=== PATIENT | female | born 1940 | race Caucasian/White ===

== ENCOUNTER 2016-07-14 07:50 | Outpatient (CLI) ==
[2016-03-24 04:10] VITALS: BMI 26.9
== END 2016-07-14 07:51 | disposition home or self-care (01) ==
LOC: AMBL 07:50
PROVIDERS: ATTEND Emergency Medicine
DX: M79.606 Pain in leg, unspecified (principal); M25.559 Pain in unspecified hip; W19.XXXA Unspecified fall, initial encounter; Y92.009 Unspecified place in unspecified non-institutional (private) residence as the place of occurrence of the external cause

== ENCOUNTER 2016-07-17 14:18 | Emergency (ER) ==
[2016-07-17 14:23] VITALS: BP 123/68; TEMP 99.5; BMI 26.2
--- NOTE | 2016-07-17 14:25 | ED.PDOC ---
General ED Provider: Dr. GEREMIAS MAGANA JR Chief Complaint: Fall Stated Complaint: fell 1 week ago-lost balance and fell back and landed onto floor onto buttock then fell back and hit back of head--has pain to buttocks area--difficult to walk-point to anterior pelvic area-able to move legs--is alert[End]99.5 82 20 93% 123/68 710 Time Seen by Physician: 14:27 Mode of Arrival: Walk-In Information Source: Patient Exam Limitations: No limitations Primary Care Provider: PRESTON FITZGERALD Nursing and Triage Documentation Reviewed and Agree: Yes Review of Systems - Review Of Systems Constitutional: Reports: Malaise, Weakness Respiratory: Reports: Cough Musculoskeletal: Reports: Back pain, Neck pain Skin: Reports: Bruising Neurological: Reports: Cognitive dysfunction, Weakness Endocrine: Reports: No symptoms Hematologic/Lymphatic: Reports: No symptoms All Other Systems: Other Past Medical History - Past Medical History Previously Healthy: No Endocrine: Reports: Dyslipidemia Cardiovascular: Reports: CAD, HI, Hypertension, CHF Respiratory: Reports: None Hematological: Reports: None Gastrointestinal: Reports: GERD Genitourinary: Reports: Other Neuro/Psych: Reports: None Musculoskeletal: Reports: Arthritis Cancer: Reports: None Other Pertinent Past Medical History: BLADDER, chronic back pain - Surgical History General Surgical History: Reports: Hysterectomy (PARTIAL HYSTERECTOMY,), CABG, Orthopedic ( RIGHT KNEE REPLACEMENT ) - Family History Family History: Reports: Unknown - Social History Smoking Status: Former smoker Hx Substance Use: No Alcohol Screening: None Physical Exam - Physical Exam Appearance: Ill-appearing Ill-appearing: Mild Pain Distress: Moderate Eyes: RE, EOMI, Conjunctiva clear ENT: Ears normal, Nose normal, Oropharynx normal Neck: Supple Respiratory: Airway patent, Breath sounds clear, Breath sounds equal, Respirations nonlabored Cardiovascular: RRR, Pulses normal, No rub, No murmur GI/: Soft, Nontender, No masses, Bowel sounds normal, No Organomegaly Musculoskeletal: Normal strength, ROM intact, No edema, No calf tenderness ( TENDER CSPINE MID HEIGHT RIGHT LUMBAR SPINE PELVIC PAIN WITHOUT TENDERNESS) Skin: Warm, Dry, Normal color Neurological: Sensation intact, Motor intact, Reflexes intact, Cranial nerves intact, Alert, Oriented Physician Notification - Case Discussed Physician Notified: DR ALEXANDER Time of Notification: 16:38 (INFORMED OF DISCHARGE HOME) Critical Care Note - Critical Care Note Total Time (mins): 5 Course - Course Hematology/Chemistry: 07/17/16 15:06 07/17/16 15:06 Orders, Labs, Meds: Lab Review 07/17/16 15:06 WBC 12.06 H RBC 3.27 L Hgb 9.8 L Hct 29.0 L MCV 88.7 MCH 30.0 MCHC 33.8 RDW Coeff of Rylan 13.3 Plt Count 230 Immature Gran % (Auto) 0.3 Neut % (Auto) 80.0 Lymph % (Auto) 9.7 L [place] % (Auto) 9.5 Eos % (Auto) 0.2 Baso % (Auto) 0.3 Immature Gran # (Auto) 0.0 Neut # 9.6 H Lymph # 1.2 [place] # 1.2 Eos # 0.0 Baso # 0.0 Sodium 135 L Potassium 3.7 Chloride 107 Carbon Dioxide 21 L Anion Gap 10.7 BUN 13 Creatinine 1.20 Estimated GFR (MDRD) 44.00 BUN/Creatinine Ratio 10.83 Glucose 115 Calcium 8.7 Total Bilirubin 0.69 AST 13 L ALT 9 L Alkaline Phosphatase 66 Total Protein 6.4 Albumin 3.0 L Globulin 3.4 Albumin/Globulin Ratio 0.88 Orders Category Date Time Status CBC W/ AUTO DIFF Stat LAB 07/17/16 15:06 Completed CMP [COMPREHENSIVE METABOLIC PANEL] Stat LAB 07/17/16 15:[address] CERVICAL SPINE W/O CONTRAST Stat RADS 07/17/16 15:[address] HEAD W/O CONTRAST Stat RADS 07/17/16 15:[address] LUMBAR SPINE W/O CONTRAST Stat RADS 07/17/16 15:12 Completed PELVIS & BRUNILDA HIPS Stat RADS 07/17/16 14:26 Completed Vital Signs: Temp Pulse Resp BP Pulse Ox 07/17/16 14:18 99.5 F 82 20 123/68 93 L Departure - Departure Time of Disposition: 16:38 Disposition: HOME SELF-CARE Discharge Problem: Falls Back pain Qualifiers: Back pain location: low back pain Chronicity: acute Back pain laterality: right Sciatica presence: without sciatica Qualifier Code: (M54.5) Low back pain Instructions: Fall Prevention for Older Adults (ED), Acute Low Back Pain (ED), Lower Back Exercises (ED) Condition: Good Pt referred to PMD for follow-up: Yes Additional Instructions: RECHECK PMD NEXT WEEK RETURN IF WORSENING HOME MEDICATION FOR PAIN DAILY EXERCISE NO NEW INJURIES ON XRAY- OLD RIGHT BACK FRACTURE SEEN ON XRAY Allergies/Adverse Reactions: Allergies Penicillins Adverse Reaction (Verified 07/17/16 14:25) Home Medications: Ambulatory Orders Furosemide [Lasix Tab] 40 mg PO QDAC 02/17/15 Hydrocodone Bit/Acetaminophen [[place] 7.5-325] 7.5 - 325 each PO TID 02/17/15 Lisinopril [Zestril] 10 mg PO DAILY 02/17/15 Oxybutynin Chloride [Ditropan Xl] 10 mg PO DAILY 02/17/15 Simvastatin 40 mg PO BEDTIME 02/17/15 Meclizine HCl 25 mg PO TID #100 11/08/15 Diazepam [Valium] 2 mg PO Q12HR PRN #20 tablet 03/27/16 Diltiazem HCl [Cardizem Cd] 240 mg PO DAILY 07/17/16 Potassium Chloride [Klor-Con 10] 10 meq PO DAILY 07/17/16
--- NOTE | 2016-07-17 15:05 | DI ---
EXAM: Radiographs, pelvis and bilateral hip HISTORY: Initial presentation for pelvic pain following a fall. COMPARISON: CT 03/06/2016. TECHNIQUE: Four views. FINDINGS: Bilateral hip arthroplasty hardware noted. Components appear well seated. No fracture o r dislocation identified. The bones are demineralized. Degenerative changes of the lumbar spine ar e incompletely imaged. No localized soft tissue abnormality. IMPRESSION: No fracture or dislocation.
[2016-07-17 15:11] LABS: BASOPHILS % (AUTO) 0.3 % (0.0-3.0); EOSINOPHILS % (AUTO) 0.2 % (0.0-7.0); HEMOGLOBIN 9.8 g/dl (12.0-16.0); IMMATURE GRANULOCYTE % (AUTO) 0.3 % (0.0-5.0); LYMPHOCYTES # (AUTO) 1.2 K/uL (0.60-3.4); LYMPHOCYTES % (AUTO) 9.7 (10.0-50.0); MEAN CORPUSCULAR HGB CONC 33.8 (31.8-35.4); MEAN CORPUSCULAR VOLUME 88.7 fl (81.0-99.0); MONOCYTES # (AUTO) 1.2 K/uL (0.4-2.0); MONOCYTES % (AUTO) 9.5 (0-10); NEUTROPHILS # (AUTO) 9.6 K/ul (2.0-6.9); PLATELET COUNT 230 10^3/uL (140-440); RED BLOOD COUNT 3.27 10^6/ul (4.20-5.40); WHITE BLOOD COUNT 12.06 K/ul (4.6-10.2)
[2016-07-17 15:31] LABS: ALBUMIN/GLOBULIN RATIO 0.88; ANION GAP 10.7; BILIRUBIN,TOTAL 0.69 mg/dL (0.00-1.20); BUN/CREATININE RATIO 10.83; CALCIUM 8.7 mg/dL (8.2-10.2); CREATININE 1.2 mg/dL (0.60-1.30); POTASSIUM 3.7 mmol/L (3.5-5.10); TOTAL PROTEIN 6.4 g/dL (5.8-8.1)
--- NOTE | 2016-07-17 16:04 | CT ---
EXAM: CT head without contrast. HISTORY: Initial presentation for head injury. COMPARISON: 03/24/2016. TECHNIQUE: Multiple axial images of the brain were obtained from the skull base through the vertex without intravenous contrast. FINDINGS: There is no intracranial hemorrhage or extraaxial collection. The lira-white differentia tion is maintained without evidence for acute large vascular territory infarction. There are areas of periventricular and subcortical white matter low attenuation. The cortical sulci and cerebral ve ntricles are symmetrically enlarged. The basal cisterns are well visualized. There is no hydroceph alus, mass effect, or midline shift. The paranasal sinuses and mastoid air cells are clear. The ca lvarium is intact. Since the prior study, there has been no significant interval change. IMPRESSION: 1. No acute intracranial abnormality. 2. Chronic small vessel ischemic changes and atrophy.
--- NOTE | 2016-07-17 16:04 | CT ---
EXAM: CT of the cervical spine without contrast History: Head and neck trauma. Technique: Multiplanar CT images through the cervical spine were obtained without the administratio n of IV contrast Findings: Biapical lung scarring. The visualized airway remains patent. No acute fracture or subluxation. No prevertebral soft tissue swelling. Predental space is not widened. Severe narrowing of the C1-C2 articulation with endplate sclerosis and osteophyte formation. Multilevel severe bilateral bony neur al foraminal narrowing secondary to uncovertebral and facet hypertrophy. Moderate bony central canal stenosis at C6-7 and mild to moderate bony central canal stenosis at C5-6 secondary to posterior di sc osteophyte complex. Also posterior disc osteophyte complex at C1-C2. Impression: No acute osseous abnormality of the cervical spine. Degenerative changes.
--- NOTE | 2016-07-17 16:26 | CT ---
Examination: Noncontrast CT imaging of the lumbar spine with axial, sagittal, and coronal reformats . Reason for study: Pain after fall 1 week ago at the L3 level. Comparison: CT scan performed 03/06/2016. FINDINGS: The bones are diffusely demineralized. There is moderate to marked dextroscoliosis of th e lumbar spine. No acute fracture or listhesis. There is a chronic-appearing right L1 transverse p rocess fracture. Diffuse degenerative disease is seen throughout the lumbar spine not significantly changed from the prior study dated 03/06/2016 with vacuum disc phenomenon intervertebral body height loss lateral scoliotic disease and facet hypertrophy. In the partially imaged lung bases, there is bibasilar atelectasis and likely a small right-sided pl eural effusions/pleural thickening. T10-T11: Marked degenerative disease with narrowing of the central canal and bilateral foramina, ri ght greater than left secondary to a combination of calcified disc, ligamentous hypertrophy and face t arthropathy. T11-T12: Marked degenerative disease with narrowing of the central canal and bilateral foramina, rig ht greater than left secondary to a combination of calcified disc, ligamentous hypertrophy, and face t arthropathy. T12-L1: There is marked degenerative disease with narrowing of the central canal and bilateral fora wan, left greater than right secondary to a combination of calcified disc, ligamentous hypertrophy, scoliotic change, and facet arthropathy. L1-L2: There is marked degenerative disease with narrowing of the central canal and bilateral forami na secondary to a combination of calcified disc and ligamentous hypertrophy, scoliotic change, and f acet arthropathy. There is near complete loss of the left foramina with mild to moderate l narrowin g of the right foramina. L2-L3: There is marked degenerative disease with narrowing of the central canal and moderate bilater al foraminal narrowing secondary to a combination of calcified disc and ligamentous hypertrophy, sco liotic change, and facet arthropathy. L3-L4: There is marked degenerative disease with narrowing of the central canal and significant narr owing of the left foramina secondary to a combination of calcified disc and ligamentous hypertrophy with scoliotic change and facet arthropathy. The right foramen appears patent. L4-L5: There is marked degenerative disease with narrowing of the central canal and bilateral forami nal narrowing, right worse than left secondary to a combination of calcified disc, ligamentous hyper trophy, scoliotic change, and facet arthropathy. L5-S1: There is marked degenerative disease with narrowing of the central canal and bilateral jennifer inal narrowing, right worse than left secondary to a combination of calcified disc and ligamentous h ypertrophy, scoliotic change, and facet arthropathy. Impression: 1. No acute fracture or listhesis. 2. Severe multilevel degenerative disc disease with scoliosis intervertebral body disc space height loss, and foraminal narrowing. 3. Age indeterminate (likely chronic) right L1 transverse process fracture .
== END 2016-07-17 16:55 | disposition home or self-care (01) ==
LOC: ED 14:18
DX: M54.5 Low back pain (principal); R29.6 Repeated falls; M54.2 Cervicalgia; R10.2 Pelvic and perineal pain; E78.5 Hyperlipidemia, unspecified; I10 Essential (primary) hypertension; I50.9 Heart failure, unspecified; I25.10 Atherosclerotic heart disease of native coronary artery without angina pectoris; I25.2 Old myocardial infarction; R53.1 Weakness; W19.XXXA Unspecified fall, initial encounter; Z79.899 Other long term (current) drug therapy
CPT/HCPCS: 36415; 80053; 85025; 99283

== ENCOUNTER 2016-09-21 12:54 | Outpatient (CLI) ==
[2016-09-21 13:40] VITALS: BMI 26.9
== END 2016-09-21 12:55 | disposition home or self-care (01) ==
LOC: AMBL 12:54
PROVIDERS: ATTEND Emergency Medicine
DX: S81.812A Laceration without foreign body, left lower leg, initial encounter (principal); W45.8XXA Other foreign body or object entering through skin, initial encounter

== ENCOUNTER 2016-09-21 13:27 | Emergency (ER) ==
[2016-09-21] MEDS ORDERED: LIDOCAINE 1 % AMP 5 ML (SUTURES) SUBCUT STA (13:33)
[2016-09-21 13:40] VITALS: BP 121/78; TEMP 97.3; BMI 26.9
--- NOTE | 2016-09-21 14:15 | ED.PDOC ---
General ED Provider: Dr. GEREMIAS MGAANA JR Chief Complaint: Laceration Stated Complaint: car door shut on leg. Approx 1.5 inch laceration to left lower leg that is not approximated and full thickness of skin. [ End ] Time Seen by Physician: 13:30 Mode of Arrival: Ambulance Information Source: Patient Exam Limitations: No limitations Primary Care Provider: PRESTON FITZGERALD Nursing and Triage Documentation Reviewed and Agree: No Review of Systems - Review Of Systems Constitutional: Reports: No symptoms Eyes: Reports: No symptoms Ears, Nose, Mouth, Throat: Reports: No symptoms Respiratory: Reports: No symptoms Cardiac: Reports: No symptoms GI: Reports: No symptoms : Reports: No symptoms Musculoskeletal: Reports: Muscle pain Skin: Reports: Lesions Neurological: Reports: No symptoms (crotchety) Endocrine: Reports: No symptoms Hematologic/Lymphatic: Reports: No symptoms All Other Systems: Other Past Medical History - Past Medical History Previously Healthy: No Endocrine: Reports: Dyslipidemia Cardiovascular: Reports: CAD, ID, Hypertension, CHF Respiratory: Reports: None Hematological: Reports: None Gastrointestinal: Reports: GERD Genitourinary: Reports: Other Neuro/Psych: Reports: None Musculoskeletal: Reports: Arthritis Cancer: Reports: None Last Menstrual Period: 2002 Other Pertinent Past Medical History: BLADDER, chronic back pain - Surgical History General Surgical History: Reports: Hysterectomy (PARTIAL HYSTERECTOMY,), CABG, Orthopedic ( RIGHT KNEE REPLACEMENT ) - Family History Family History: Reports: Unknown - Social History Smoking Status: Former smoker Hx Substance Use: No Alcohol Screening: None - Immunizations Tetanus Shot up to Date: Yes Physical Exam - Physical Exam Appearance: Well-appearing Pain Distress: Moderate Eyes: RE, EOMI, Conjunctiva clear ENT: Ears normal, Nose normal, Oropharynx normal Neck: Supple Respiratory: Airway patent, Breath sounds clear, Breath sounds equal, Respirations nonlabored Cardiovascular: RRR, Pulses normal, No rub, No murmur GI/: Soft, Nontender, No masses, Bowel sounds normal, No Organomegaly Musculoskeletal: Normal strength, ROM intact, No edema, No calf tenderness Skin: Warm, Dry (left anterior olsen lesion about 5 cm with penetration through skin and subct tissue) Neurological: Sensation intact, Motor intact, Reflexes intact, Cranial nerves intact, Alert, Oriented Procedures - Laceration/Wound Repair No standard instances Wound Description: Irregular Wound Length (cm): 5 Wound Width: 1 Wound Depth: 1 Wound Explored: Clean Wound Irrigated: Yes Wound Prep: Saline, Hibiclens Anesthesia: Lidocaine Wound Repaired With: Sutures Suture Size and Type: 4-0 nylon Number of Sutures: 12 (2 horizontal mattress and 10 hitch running suture) Layer Closure?: No Critical Care Note - Critical Care Note Total Time (mins): 0 Course - Course Orders, Labs, Meds: Orders Category Date Time Status Lidocaine HCl/Pf [Lidocaine 1 % Amp 5 ml (Sutures)] MEDS 09/21/16 13:33 Discontinued 10 ml SUBCUT ONCE STA Medications Discontinued Medications Generic Name Dose Route Start Last Admin Trade Name Freq PRN Reason Stop Dose Admin Lidocaine HCl 10 ml 09/21/16 13:33 09/21/16 13:58 Lidocaine 1 % Amp 5 Ml (Sutures) SUBCUT 09/21/16 13:34 10 ml ONCE STA Administration Vital Signs: Temp Pulse Resp BP Pulse Ox 09/21/16 13:29 97.3 F L 58 L 20 121/78 95 Departure - Departure Time of Disposition: 14:13 Disposition: HOME SELF-CARE Discharge Problem: Laceration - injury Instructions: Laceration (ED), Care For Your Stitches (ED) Condition: Good Pt referred to PMD for follow-up: Yes Additional Instructions: sutures out in 10 days elevate legs 2 hours twice a day may use extra lasix BUT use extra potassium daily recheck FRIDAY Allergies/Adverse Reactions: Allergies Penicillins Adverse Reaction (Verified 07/17/16 14:25) Home Medications: Ambulatory Orders Furosemide [Lasix Tab] 40 mg PO QDAC 02/17/15 Hydrocodone Bit/Acetaminophen [[place] 7.5-325] 7.5 - 325 each PO TID PRN Oxybutynin Chloride [Ditropan Xl] 10 mg PO DAILY 02/17/15 Simvastatin 40 mg PO BEDTIME 02/17/15 Meclizine HCl 25 mg PO TID #100 11/08/15 Diltiazem HCl [Cardizem Cd] 240 mg PO DAILY 07/17/16 Potassium Chloride [Klor-Con 10] 10 meq PO DAILY 07/17/16 Diazepam [Valium] 2 mg PO TID 09/21/16 Metolazone [Zaroxolyn] 2.5 mg PO DIRECTED 09/21/16
== END 2016-09-21 14:25 | disposition home or self-care (01) ==
LOC: ED 13:27
DX: S81.812A Laceration without foreign body, left lower leg, initial encounter (principal); W20.8XXA Other cause of strike by thrown, projected or falling object, initial encounter; Z79.899 Other long term (current) drug therapy
CPT/HCPCS: 99283

== ENCOUNTER 2017-09-12 14:56 | Outpatient (CLI) | END 2017-09-12 15:23 | disposition short-term general hospital (02) | LOC: AMBL 14:56 | PROVIDERS: ATTEND Internal Medicine | DX: F99 Mental disorder, not otherwise specified (principal) ==